=== PATIENT | male | born 1955 | race Caucasian/White ===

== ENCOUNTER 2023-05-14 09:00 | Outpatient (RCR) | payer MEDICARE, SELFPAY | END 2023-05-14 15:47 | disposition home or self-care (01) | LOC: HO.PT 09:00 | PROVIDERS: PCP Family Medicine; Visit Provider Family Medicine | DX: M25.511 Pain in right shoulder (principal); G89.29 Other chronic pain | CPT/HCPCS: 97110; 97161 ==

== ENCOUNTER 2024-03-11 09:55 | Outpatient (RCR) | payer MEDICARE, SELFPAY | END 2024-03-11 13:54 | disposition home or self-care (01) | LOC: HO.PT 09:55 | PROVIDERS: PCP Family Medicine; Visit Provider Physical Therapist | DX: M75.111 Incomplete rotator cuff tear or rupture of right shoulder, not specified as traumatic (principal) | CPT/HCPCS: 97110; 97112; 97140; 97162; 97535 ==